=== PATIENT | female | born 1950 | race Caucasian/White ===

== ENCOUNTER 2017-03-23 10:06 | Observation (INO) | payer MEDICARE, OTHER ==
[2017-03-23 10:14] VITALS: RESP 18
[2017-03-23] MEDS ORDERED: ASPIRIN 81 MG PO STA (10:50)
[2017-03-23] MEDS ORDERED: NITROGLYCERIN OINT 1 INCH/GM PACKET TOPICAL STA (10:50)
--- NOTE | 2017-03-23 10:53 | ED ---
General Adult HPI - General Chief complaint: Chest Pain Stated complaint: Chest pain Time Seen by Provider: 03/23/17 10:46 Source: patient, RN notes reviewed Mode of arrival: wheelchair Limitations: no limitations - History of Present Illness Initial comments: Patient is a pleasant [age]-year-old female presenting to the emergency department chest discomfort. Onset of symptoms was around 8:15 when she woke this morning. Discomfort has been fairly steady. Discomfort does increase somewhat with movement. No dyspnea. No cough except for mild chronic cough. No nausea or diaphoresis. No history of similar symptoms previously. Patient does not regularly go to the doctor. Discomfort is currently rated 4/10. Discomfort does feel like pressure. - Related Data Home Medications Medication Instructions Recorded Confirmed Aspirin EC [Ecotrin Low Dose] 162 mg PO DAILY 03/23/17 03/23/17 Multivitamins, Thera [Multivitamin 1 tab PO DAILY 03/23/17 03/23/17 (formulary)] Allergies Allergy/AdvReac Type Severity Reaction Status Date / Time No Known Allergies Allergy Verified 03/23/17 10:33 Review of Systems ROS Statement: Those systems with pertinent positive or pertinent negative responses have been documented in the HPI. ROS Other: All systems not noted in ROS Statement are negative. Constitutional: Denies: fever Eyes: Denies: eye pain ENT: Denies: ear pain Respiratory: Denies: cough, dyspnea Cardiovascular: Reports: chest pain Endocrine: Denies: fatigue Gastrointestinal: Denies: abdominal pain Genitourinary: Denies: dysuria Musculoskeletal: Denies: back pain Skin: Denies: rash Neurological: Denies: weakness Past Medical History Past Medical History: No Reported History History of Any Multi-Drug Resistant Organisms: None Reported Past Surgical History: Hysterectomy Past Psychological History: No Psychological Hx Reported Smoking Status: Never smoker Past Alcohol Use History: Daily Past Drug Use History: Marijuana General Exam Limitations: no limitations General appearance: alert, in no apparent distress Head exam: Present: atraumatic Eye exam: Present: normal appearance, PERRL ENT exam: Present: normal oropharynx Neck exam: Present: normal inspection Respiratory exam: Present: normal lung sounds bilaterally. Absent: chest wall tenderness Cardiovascular Exam: Present: regular rate, normal rhythm Expanded Peripheral pulses: 2+: Radial (R), Radial (L), Dorsalis Pedis (R), Dorsalis Pedis (L) GI/Abdominal exam: Present: soft. Absent: tenderness Extremities exam: Present: normal inspection. Absent: pedal edema, calf tenderness Neurological exam: Present: alert Psychiatric exam: Present: normal affect, normal mood Skin exam: Present: normal color Course Vital Signs 03/23/17 03/23/17 10:10 10:57 Temperature 99.1 F Pulse Rate 116 H 91 Respiratory 18 18 Rate Blood Pressure 192/90 168/88 O2 Sat by Pulse 99 99 Oximetry EKG Findings - EKG Comments: EKG Findings:: Normal sinus rhythm 97. MO 164. QRS 76. QT 338. QTC 429. Normal axis. Normal QRS. Nonspecific ST-T. Medical Decision Making - Medical Decision Making Patient reevaluated without much change. Case was discussed in detail with Dr. Spivey, who will admit his patient. Patient updated. - Lab Data Result diagrams: 03/23/17 10:50 03/23/17 10:50 Lab Results 03/23/17 03/23/17 03/23/17 Range/Units 10:50 10:50 10:50 WBC 10.2 (3.8-10.6) k/uL RBC 4.89 (3.80-5.40) m/uL Hgb 14.3 (11.4-16.0) gm/dL Hct 45.3 (34.0-46.0) % MCV 92.5 (80.0-100.0) fL MCH 29.2 (25.0-35.0) pg MCHC 31.6 (31.0-37.0) g/dL RDW 13.3 (11.5-15.5) % Plt Count 363 (150-450) k/uL Neutrophils % 81 % Lymphocytes % 14 % Monocytes % 3 % Eosinophils % 1 % Basophils % 0 % Neutrophils # 8.3 H (1.3-7.7) k/uL Lymphocytes # 1.4 (1.0-4.8) k/uL Monocytes # 0.3 (0-1.0) k/uL Eosinophils # 0.1 (0-0.7) k/uL Basophils # 0.0 (0-0.2) k/uL PT (9.0-12.0) sec INR (<1.2) APTT (22.0-30.0) sec D-Dimer (<0.60) mg/L FEU Sodium 142 (137-145) mmol/L Potassium 4.1 (3.5-5.1) mmol/L Chloride 107 (98-107) mmol/L Carbon Dioxide 25 (22-30) mmol/L Anion Gap 10 mmol/L BUN 14 (7-17) mg/dL Creatinine 0.70 (0.52-1.04) mg/dL Est GFR (MDRD) Af Amer >60 (>60 ml/min/1.73 sqM) Est GFR (MDRD) Non-Af >60 (>60 ml/min/1.73 sqM) Glucose 125 H (74-99) mg/dL Calcium 10.6 H (8.4-10.2) mg/dL Magnesium 2.0 (1.6-2.3) mg/dL Total Bilirubin 0.4 (0.2-1.3) mg/dL AST 28 (14-36) U/L ALT 34 (9-52) U/L Alkaline Phosphatase 70 (38-126) U/L Total Creatine Kinase 61 (30-135) U/L CK-MB (CK-2) 1.6 (0.0-2.4) ng/mL CK-MB (CK-2) Rel Index 2.6 Troponin I <0.012 (0.000-0.034) ng/mL Total Protein 7.1 (6.3-8.2) g/dL Albumin 4.5 (3.5-5.0) g/dL 03/23/17 Range/Units 10:50 WBC (3.8-10.6) k/uL RBC (3.80-5.40) m/uL Hgb (11.4-16.0) gm/dL Hct (34.0-46.0) % MCV (80.0-100.0) fL MCH (25.0-35.0) pg MCHC (31.0-37.0) g/dL RDW (11.5-15.5) % Plt Count (150-450) k/uL Neutrophils % % Lymphocytes % % Monocytes % % Eosinophils % % Basophils % % Neutrophils # (1.3-7.7) k/uL Lymphocytes # (1.0-4.8) k/uL Monocytes # (0-1.0) k/uL Eosinophils # (0-0.7) k/uL Basophils # (0-0.2) k/uL PT 10.0 (9.0-12.0) sec INR 1.0 (<1.2) APTT 23.6 (22.0-30.0) sec D-Dimer 0.24 (<0.60) mg/L FEU Sodium (137-145) mmol/L Potassium (3.5-5.1) mmol/L Chloride (98-107) mmol/L Carbon Dioxide (22-30) mmol/L Anion Gap mmol/L BUN (7-17) mg/dL Creatinine (0.52-1.04) mg/dL Est GFR (MDRD) Af Amer (>60 ml/min/1.73 sqM) Est GFR (MDRD) Non-Af (>60 ml/min/1.73 sqM) Glucose (74-99) mg/dL Calcium (8.4-10.2) mg/dL Magnesium (1.6-2.3) mg/dL Total Bilirubin (0.2-1.3) mg/dL AST (14-36) U/L ALT (9-52) U/L Alkaline Phosphatase (38-126) U/L Total Creatine Kinase (30-135) U/L CK-MB (CK-2) (0.0-2.4) ng/mL CK-MB (CK-2) Rel Index Troponin I (0.000-0.034) ng/mL Total Protein (6.3-8.2) g/dL Albumin (3.5-5.0) g/dL - Radiology Data Radiology results: image reviewed (Chest x-ray shows no acute process) Disposition Clinical Impression: Chest pain Disposition: ADMITTED IP TO THIS [facility] Referrals: Hola Spivey MD [Primary Care Provider] - 1-2 days Decision Time: 12:16
[2017-03-23 11:00] LABS: Basophils % (A) 0 %; Eosinophils # (A) 0.1 k/uL (0-0.7); Eosinophils % (A) 1 %; HCT 45.3 % (34.0-46.0); HGB 14.3 gm/dL (11.4-16.0); Lymphocytes # (A) 1.4 k/uL (1.0-4.8); Lymphocytes % (A) 14 %; MCH 29.2 pg (25.0-35.0); MCHC 31.6 g/dL (31.0-37.0); MCV 92.5 fL (80.0-100.0); Monocytes # (A) 0.3 k/uL (0-1.0); Monocytes % (A) 3 %; Neutrophils # (A) 8.3 k/uL (1.3-7.7); Neutrophils % (A) 81 %; Platelet Count 363 k/uL (150-450); RBC 4.89 m/uL (3.80-5.40); RDW 13.3 % (11.5-15.5); WBC 10.2 k/uL (3.8-10.6)
[2017-03-23 11:10] LABS: ALT 34 U/L (9-52); AST 28 U/L (14-36); Albumin 4.5 g/dL (3.5-5.0); Alkaline Phosphatase 70 U/L (38-126); Anion Gap 10 mmol/L; Blood Urea Nitrogen 14 mg/dL (7-17); Calcium 10.6 mg/dL (8.4-10.2); Carbon Dioxide 25 mmol/L (22-30); Chloride 107 mmol/L (98-107); Glucose 125 mg/dL (74-99); Potassium 4.1 mmol/L (3.5-5.1); Sodium 142 mmol/L (137-145); Total Bilirubin 0.4 mg/dL (0.2-1.3); Total Protein 7.1 g/dL (6.3-8.2)
[2017-03-23 11:12] LABS: D-Dimer 0.24 mg/L FEU (<0.60)
--- NOTE | 2017-03-23 11:15 | XR ---
EXAMINATION TYPE: XR chest 2V DATE OF EXAM: 03/23/2017 COMPARISON: None HISTORY: 66-year-old female with upper left chest pain this morning TECHNIQUE: PA and lateral views FINDINGS: The cardiomediastinal silhouette, aorta, and pulmonary vasculature are within normal limits. Strandy atelectasis in the lower lungs. Otherwise, lungs and pleural spaces are clear. IMPRESSION: No acute cardiopulmonary process.
[2017-03-23 11:16] LABS: Partial Thromboplastin Time 23.6 sec (22.0-30.0)
[2017-03-23 11:25] LABS: Creatine Kinase 61 U/L (30-135)
[2017-03-23 11:38] LABS: Creatine Kinase MB 1.6 ng/mL (0.0-2.4); Troponin I <0.012 ng/mL (0.000-0.034)
[2017-03-23] MEDS ORDERED: NITROGLYCERIN SL TABS 0.4 MG TAB SUBLINGUAL PRN (12:16)
[2017-03-23] MEDS ORDERED: INFLUENZA VACCINE (6 MOS+) 60 MCG/0.5 ML SYRINGE IM ONE (13:35)
[2017-03-23] MEDS ORDERED: PNEUMOCOCCAL VACC-PNEUMOVAX 23 25 MCG/0.5 ML VIAL IM ONE (13:40)
[2017-03-23 17:29] LABS: Creatine Kinase 38 U/L (30-135)
[2017-03-23 17:41] LABS: Troponin I <0.012 ng/mL (0.000-0.034)
[2017-03-23] MEDS: NITROGLYCERIN OINT 1 INCH/GM PACKET TOPICAL SCH (21:59)
[2017-03-23 23:07] LABS: Creatine Kinase 34 U/L (30-135)
[2017-03-23 23:16] LABS: Creatine Kinase MB 0.7 ng/mL (0.0-2.4); Troponin I <0.012 ng/mL (0.000-0.034)
[2017-03-24] MEDS: NITROGLYCERIN OINT 1 INCH/GM PACKET TOPICAL SCH ×2 (02:22→07:06)
[2017-03-24 05:27] LABS: Cholesterol 239 mg/dL (<200); HDL Cholesterol 86 mg/dL (40-60); LDL Cholesterol,Calculated 138 mg/dL (0-99); Triglycerides 77 mg/dL (<150)
--- NOTE | 2017-03-24 08:32 | P.HPIM ---
History of Present Illness H&P Date: 03/24/17 Chief Complaint: Chest pain radiating to the left neck. This is a history of physical 66-year-old white female essentially admitted for chest pain which started yesterday morning after waking up from evening sleep. The patient had never had chest pain like this in the past it was described as an ache but it did radiate to the upper left clavicular neck area. The pain did not resolve and because of this was essentially admitted. She never had pain like this in the past. Activity is not necessary provocative. There were no relieving factors otherwise stated. Review of Systems Constitutional: Denies chills, Denies fever Eyes: denies blurred vision, denies pain Ears, nose, mouth and throat: Denies headache, Denies sore throat Cardiovascular: Reports as per HPI, Reports chest pain, Denies shortness of breath Respiratory: Denies cough Genitourinary: Denies dysuria, Denies hematuria Musculoskeletal: Denies myalgias Past Medical History Past Medical History: Osteoarthritis (OA) Additional Past Medical History / Comment(s): Arthritis bilateral feet History of Any Multi-Drug Resistant Organisms: None Reported Past Surgical History: Appendectomy, Hysterectomy Additional Past Surgical History / Comment(s): Bilateral lasik eye surgery Past Anesthesia/Blood Transfusion Reactions: No Reported Reaction Smoking Status: Never smoker - Past Family History Father Family Medical History: No Reported History Additional Family Medical History / Comment(s): Father was healthy and lived to be 85 yrs old. Mother Family Medical History: Seizure Disorder Additional Family Medical History / Comment(s): Mother had a closed head injury and developed epilepsy after that. She at the age of 81yrs. Medications and Allergies Home Medications Medication Instructions Recorded Confirmed Type Aspirin EC [Ecotrin Low Dose] 162 mg PO DAILY 03/23/17 03/23/17 History Multivitamins, Thera [Multivitamin 1 tab PO DAILY 03/23/17 03/23/17 History (formulary)] Allergies Allergy/AdvReac Type Severity Reaction Status Date / Time No Known Allergies Allergy Verified 03/23/17 10:33 Physical Exam Vitals: Vital Signs Temp Pulse Pulse Resp BP BP Pulse Ox 03/24/17 08:00 98.0 F 71 18 161/74 97 03/24/17 04:00 98 F 97 18 146/80 96 03/24/17 00:00 98.1 F 97 18 147/88 96 03/23/17 20:00 18 03/23/17 19:43 98.6 F 69 18 119/63 100 03/23/17 15:30 98.6 F 86 18 141/71 97 03/23/17 14:59 97.8 F 82 18 125/67 99 03/23/17 14:22 85 18 129/64 99 03/23/17 12:42 84 18 138/74 99 03/23/17 10:57 91 18 168/88 99 03/23/17 10:10 99.1 F 116 H 18 192/90 99 Intake and Output 03/23/17 03/24/17 03/24/17 22:59 06:59 14:59 Intake Total 240 Balance 240 Intake: Oral 240 Other: Voiding Method Toilet Toilet # Voids 1 Weight 58.967 kg 58.967 kg Results CBC & Chem 7: 03/23/17 10:50 03/23/17 10:50 Labs: Abnormal Lab Results - Last 24 Hours (Table) 03/23/17 03/23/17 03/23/17 Range/Units 10:50 10:50 10:50 Neutrophils # 8.3 H (1.3-7.7) k/uL Glucose 125 H (74-99) mg/dL Calcium 10.6 H (8.4-10.2) mg/dL Cholesterol 239 H (<200) mg/dL LDL Cholesterol, Calc 138 H (0-99) mg/dL HDL Cholesterol 86 H (40-60) mg/dL Thrombosis Risk Factor Assmnt - Choose All That Apply Any of the Below Risk Factors Present?: Yes Each Factor Represents 1 point: Obesity (BMI >25) Other Risk Factors: Yes Each Risk Factor Represents 2 Points: Age 61-74 years Other congenital or acquired thrombophilia - If yes, enter type in comment: No Thrombosis Risk Factor Assessment Total Risk Factor Score: 3 Thrombosis Risk Factor Assessment Level: Moderate Risk Assessment and Plan (1) Chest pain Current Visit: Yes Status: Acute Code(s): R07.9 - CHEST PAIN, UNSPECIFIED SNOMED Code(s): 83662376 Plan: Rule out myocardial infarction. Intermediate Project Manager consult. No significant enzymatic elevation is noted on admission. The patient is now stabilizing. Probable stress testing to be done given her clinical scenario and advancing age. We will continue to follow. Anticipate discharge later today if cleared by cardiology. The patient is a full code otherwise Time with Patient: Greater than 30
[2017-03-24] MEDS ORDERED: ASPIRIN 325 MG TAB PO SCH (09:00)
[2017-03-24] MEDS ORDERED: ATORVASTATIN 40 MG TAB PO SCH (11:30)
[2017-03-24] MEDS ORDERED: LISINOPRIL 10 MG TAB PO SCH (11:30)
--- NOTE | 2017-03-24 11:32 | NM ---
EXAMINATION TYPE: NM stress cardiolite complete DATE OF EXAM: 03/24/2017 COMPARISON: NONE HISTORY: Chest pain and facial numbness TECHNIQUE: After the intravenous administration of 11.7 mCi Tc 99m Sestamibi - Rest images obtained 40 minutes post injection. The patient exercised using a ZACHARY protocol and 1 minute prior to peak exercise was injected with 29.6 mCi Tc 99m Sestamibi - Stress images obtained 5 minutes post injectio n. FINDINGS: Targeted heart rate was achieved during performance of the study. Review of stress and rest SPECT isabela ges demonstrates no distinct perfusion abnormality. Gated analysis shows normal wall motion with an estimated left ventricular ejection fraction of 64 %. TID is calculated within normal limits at 0.88. IMPRESSION: 1. No scintigraphic evidence for reversible ischemia. 2. Estimated left ventricular ejection fraction of 64%.
[2017-03-24 11:50] VITALS: BP 139/85; PULSE 89; TEMP 98.5
--- NOTE | 2017-03-24 12:01 | ECHOF ---
Referral Reason:chest pain MEASUREMENTS -------- HEIGHT: 147.3 cm WEIGHT: 59.0 kg BP: 161/74 IVSd: 1.0 cm (0.6 - 1.1) LVIDd: 4.6 cm (3.9 - 5.3) LVPWd: 1.2 cm (0.6 - 1.1) IVSs: 1.5 cm LVIDs: 2.5 cm LVPWs: 2.4 cm Ao Diam: 3.1 cm (2.0 - 3.7) AV Cusp: 1.9 cm (1.5 - 2.6) LA Diam: 3.3 cm (2.7 - 3.8) MV EXCURSION: 7.809 mm (> 18.000) MV EF SLOPE: 34 mm/s (70 - 150) EPSS: 0.9 cm MV E Andrey: 0.53 m/s MV DecT: 215 ms MV A Andrey: 0.70 m/s MV E/A Ratio: 0.77 RAP: 5.00 mmHg RVSP: 9.49 mmHg FINDINGS -------- Sinus rhythm with extra systolic beats. This was a technically good study. The left ventricular size is normal. Left ventricular wall thickness is normal. Overall left vent ricular systolic function is normal with, an EF between 55 - 60 %. The right ventricle is normal in size and function. The left atrium is normal in size. The right atrium is normal in size. The aortic valve is trileaflet, and appears structurally normal. No aortic stenosis or regurgitation. Mild mitral annular calcification present. There is trace mitral regurgitation. Trace tricuspid regurgitation present. The right ventricular systolic pressure, as measured by Dopp ler, is 9.49mmHg. Trace/mild (physiologic) pulmonic regurgitation. The aortic root size is normal. The pericardium is normal. CONCLUSIONS -------- 1. Sinus rhythm with extra systolic beats. 2. This was a technically good study. 3. The left ventricular size is normal. 4. Left ventricular wall thickness is normal. 5. Overall left ventricular systolic function is normal with, an EF between 55 - 60 %. 6. The right ventricle is normal in size and function. 7. The left atrium is normal in size. 8. The right atrium is normal in size. 9. The aortic valve is trileaflet, and appears structurally normal. No aortic stenosis or regurgitati on. 10. Mild mitral annular calcification present. 11. There is trace mitral regurgitation. 12. Trace tricuspid regurgitation present. 13. The right ventricular systolic pressure, as measured by Doppler, is 9.49mmHg. 14. Trace/mild (physiologic) pulmonic regurgitation. 15. The aortic root size is normal. 16. The pericardium is normal. DOCTOR OF NAPRAPATHY: Ann Marie Barajas RDCS
--- NOTE | 2017-03-24 12:19 | P.CRDCN ---
History of Present Illness Consult date: 03/24/17 Consult reason: chest pain History of present illness: Mrs. Cerrato is a pleasant 66-year-old female with no past medical history. Although she states she hasn't seen a doctor in many years. She denies tobacco use but drinks a beer per night as well as smokes marijuana daily. She denies history of coronary artery disease and has never seen a customer assistance representative for any reason. We have been asked to see her in consultation for complaints of chest pain. She states she woke up yesterday with a tight, squeezing sensation in the anterior left chest wall that radiates around to the back. She denies radiation of pain to her arm, neck, jaw or shoulder. She had no associated symptoms suggestive of angina such as shortness of breath, dizziness, palpitations, diaphoresis, nausea or vomiting. The pain persisted for an hour or so and that is why she decided to come to the hospital. Blood pressure on arrival 192/90 with heart rate 116. Repeat this morning 161/74 with heart rate 71. No medications given in ED. EKG on arrival sinus mechanism with non-specific ST abnormalities in anterolateral leads. Repeat this morning shows sinus mechanism with no ST abnormalities. Chest xray is negative for an acute cardiopulmonary process. Laboratory data reviewed, hemoglobin 14.3, platelets 363, d-dimer negative, potassium 4.1, magnesium 2.0, creatinine 0.7, and cardiac enzymes negative 3, LDL 138, HDL 86, total cholesterol 238. She takes aspirin 162 mg daily. There is no old echo, catheterization or stress test for review. Review of Systems At the time of my exam: CONSTITUTIONAL: Denies fever. Denies chills. EYES: Denies blurred vision. Denies vision changes. Denies eye pain. EARS, NOSE, MOUTH & THROAT: Denies headache. Denies sore throat. Denies ear pain. CARDIOVASCULAR: Denies chest pain. Denies shortness of breath. Denies orthopnea. Denies PND. Denies palpitations. RESPIRATORY: Denies cough. GASTROINTESTINAL: Denies abdominal pain. Denies diarrhea. Denies constipation. Denies nausea. Denies vomiting. MUSCULOSKELETAL: Denies myalgias. INTEGUMENTARY: Denies pruitis. Denies rash. NEUROLOGIC: Denies numbness. Denies tingling. Denies weakness. PSYCHIATRIC: Denies anxiety. Denies depression. ENDOCRINE: Denies fatigue. Denies weight change. Denies polydipsia. Denies polyurina. GENITOURINARY: Denies burning, hematuria or urgency with micturation. HEMATOLOGIC: Denies history of anemia. Denies bleeding. Past Medical History Past Medical History: Osteoarthritis (OA) Additional Past Medical History / Comment(s): Arthritis bilateral feet History of Any Multi-Drug Resistant Organisms: None Reported Past Surgical History: Appendectomy, Hysterectomy Additional Past Surgical History / Comment(s): Bilateral lasik eye surgery Past Anesthesia/Blood Transfusion Reactions: No Reported Reaction Smoking Status: Never smoker - Past Family History Father Family Medical History: No Reported History Additional Family Medical History / Comment(s): Father was healthy and lived to be 85 yrs old. Mother Family Medical History: Seizure Disorder Additional Family Medical History / Comment(s): Mother had a closed head injury and developed epilepsy after that. She at the age of 81yrs. Medications and Allergies Home Medications Medication Instructions Recorded Confirmed Type Aspirin EC [Ecotrin Low Dose] 162 mg PO DAILY 03/23/17 03/23/17 History Multivitamins, Thera [Multivitamin 1 tab PO DAILY 03/23/17 03/23/17 History (formulary)] Aspirin 81 mg PO DAILY chew 03/24/17 Rx Atorvastatin [Lipitor] 40 mg PO DAILY #30 tab 03/24/17 Rx Lisinopril [Zestril] 10 mg PO DAILY #30 tab 03/24/17 Rx Allergies Allergy/AdvReac Type Severity Reaction Status Date / Time No Known Allergies Allergy Verified 03/23/17 10:33 Physical Exam Vitals: Vital Signs Temp Pulse Pulse Resp BP BP Pulse Ox 03/24/17 08:00 98.0 F 71 18 161/74 97 03/24/17 04:00 98 F 97 18 146/80 96 03/24/17 00:00 98.1 F 97 18 147/88 96 03/23/17 20:00 18 03/23/17 19:43 98.6 F 69 18 119/63 100 03/23/17 15:30 98.6 F 86 18 141/71 97 03/23/17 14:59 97.8 F 82 18 125/67 99 03/23/17 14:22 85 18 129/64 99 03/23/17 12:42 84 18 138/74 99 Intake and Output 03/23/17 03/24/17 03/24/17 22:59 06:59 14:59 Intake Total 240 Balance 240 Intake: Oral 240 Other: Voiding Method Toilet Toilet Toilet # Voids 1 Weight 58.967 kg 58.967 kg blood pressure 161/70 471 afebrile GENERAL: This is a 66-year-old female in no apparent distress at the time of my examination. HEENT: Head is atraumatic, normocephalic. Pupils are equal, round. Sclerae anicteric. Conjunctivae are clear. Mucous membranes of the mouth are moist. Neck is supple. There is no jugular venous distention. No carotid bruit is heard. LUNGS: Clear to auscultation no wheezes, rales or rhonchi. No chest wall tenderness is noted on palpation or with deep breathing. HEART: Regular rate and rhythm without murmurs, rubs or gallops. S1 and S2 heard. ABDOMEN: Soft, nontender. Bowel sounds are heard. No organomegaly noted. EXTREMITIES: No evidence of peripheral edema and no calf tenderness noted. VASCULAR: Radial and dorsalis pedis pulses palpated, no evidence of clubbing. NEUROLOGIC: Patient is awake, alert and oriented x3. Results 03/23/17 10:50 03/23/17 10:50 Cardiac Enzymes 03/23/17 03/23/17 03/23/17 Range/Units 10:50 10:50 16:42 AST 28 (14-36) U/L CK-MB (CK-2) 1.6 1.0 (0.0-2.4) ng/mL Troponin I <0.012 <0.012 (0.000-0.034) ng/mL 03/23/17 Range/Units 22:17 AST (14-36) U/L CK-MB (CK-2) 0.7 (0.0-2.4) ng/mL Troponin I <0.012 (0.000-0.034) ng/mL Coagulation 03/23/17 Range/Units 10:50 PT 10.0 (9.0-12.0) sec APTT 23.6 (22.0-30.0) sec Lipids 03/23/17 Range/Units 10:50 Triglycerides 77 (<150) mg/dL Cholesterol 239 H (<200) mg/dL HDL Cholesterol 86 H (40-60) mg/dL Comprehensive Metabolic Panel 03/23/17 Range/Units 10:50 Sodium 142 (137-145) mmol/L Potassium 4.1 (3.5-5.1) mmol/L Chloride 107 (98-107) mmol/L Carbon Dioxide 25 (22-30) mmol/L BUN 14 (7-17) mg/dL Creatinine 0.70 (0.52-1.04) mg/dL Glucose 125 H (74-99) mg/dL Calcium 10.6 H (8.4-10.2) mg/dL AST 28 (14-36) U/L ALT 34 (9-52) U/L Alkaline Phosphatase 70 (38-126) U/L Total Protein 7.1 (6.3-8.2) g/dL Albumin 4.5 (3.5-5.0) g/dL Current Medications Generic Name Dose Route Start Last Admin Trade Name Freq PRN Reason Stop Dose Admin Nitroglycerin 0.4 mg 03/23/17 12:16 Nitrostat SUBLINGUAL Q5M PRN Chest Pain Sodium Chloride 10 ml 03/23/17 21:00 03/23/17 22:01 Saline Flush IV 10 ml BID GREG Administration Intake and Output 03/23/17 03/24/17 03/24/17 22:59 06:59 14:59 Intake Total 240 Balance 240 Intake: Oral 240 Other: Voiding Method Toilet Toilet Toilet # Voids 1 Weight 58.967 kg 58.967 kg 03/23/17 10:50 03/23/17 10:50 Assessment and Plan Assessment: ASSESSMENT 1. Chest pain, atypical with EKG changes and negative cardiac enzymes. EKG changes resolved this morning. 2. Hypertension 3. Dyslipidemia 4. Daily marijuana use. PLAN Obtain 2D echocardiogram and doppler study to assess cardiac structure and function. Perform Cardiolyte stress test to assess for reversible cardiac ischemia. Start the patient on lisinopril 10 mg daily, atorvastatin 40 mg daily and recommend she continues with daily aspirin at 81 mg. Lifestyle modifications discussed as well to lower LDL and cessation of marijuana use. If above diagnostic testing is normal she is stable for discharge home. Follow-up with Dr. Dumas in 2-3 weeks. Thank you kindly for this consultation. Nurse Practitioner note has been reviewed, I agree with a documented findings and plan of care. Patient was seen and examined.
--- NOTE | 2017-03-24 13:07 | EST ---
EXERCISE STRESS DATE OF SERVICE: 03/24/2017 AGE: 66 SEX: Female HT: 56" WT: 130 pounds PROTOCOL: CARDIOLITE ZACHARY STAGE: II DURATION OF EXERCISE: 7:30 HEART RATE REST: 78 BLOOD PRESSURE REST: 141/84 MAXIMUM HEART RATE ACHIEVED: 140 MAXIMUM BLOOD PRESSURE: 198/70 85% MPHR: 132 100% MPHR: 155 METS: 9.1 INDICATION OF THE STUDY: Chest pain. CLINICAL INFORMATION: STRESS DATA: Pretesting physical examination showed a heart rate of 78, pressure is 141/84 mmHg. Baseline EKG showed sinus mechanism with nonspecific changes anteriorly. The patient exercised on the treadmill according to Zachary protocol for a total of 7 minutes and 30 seconds and achieved 9.1 METs. Max heart rate was 140, which is about 90% of maximum predicted heart rate. Maximum blood pressure was 198/70 mmHg. Clinically the patient did not have any symptoms of chest pain or chest discomfort. The EKG did not show any significant ST or T-wave abnormalities consistent with ischemia. CONCLUSION: 1. Good exercise capacity. 2. Normal EKG in response to exercise. 3. Please follow up on the Cardiolite portion on a separate report from radiology department. MMODL / IJN: [id number] /
[2017-03-25] MEDS ORDERED: ASPIRIN 81 MG PO SCH (09:00)
== END 2017-03-24 13:46 | disposition home or self-care (01) ==
LOC: EC 10:06 → 3OBS 12:17
PROVIDERS: ADMIT Family Medicine; ATTEND Family Medicine
DX: R07.89 Other chest pain (principal); I10 Essential (primary) hypertension; E78.5 Hyperlipidemia, unspecified; M19.072 Primary osteoarthritis, left ankle and foot; M19.071 Primary osteoarthritis, right ankle and foot; E66.9 Obesity, unspecified; Z68.25 Body mass index [BMI] 25.0-25.9, adult; F12.90 Cannabis use, unspecified, uncomplicated; Z79.82 Long term (current) use of aspirin; Z82.0 Family history of epilepsy and other diseases of the nervous system
CPT/HCPCS: 99285 ×2; 36415; 93005; 93017; 93306; 85379; 80061; 80053; 82550; 82553; 83735; 84484; 85025; 85610; 85730; 71046; 78452; G0378 ×2; A9500

== ENCOUNTER → 2020-07-09 | Outpatient (CLI) | payer MEDICARE, OTHER ==
--- NOTE | 2020-07-09 13:59 | BD ---
EXAMINATION TYPE: Axial Bone Density DATE OF EXAM: 07/09/2020 COMPARISON: NONE CLINICAL HISTORY: Height: 57.5 IN Weight: 121 LBS FRAX RISK QUESTIONS: Family History (Parent hip fracture): YES MOTHER RISK FACTORS HISTORY OF: Active: YES Diet low in dairy products/other sources of calcium: YES Postmenopausal woman: TOTAL HYST AGE 46 MEDICATIONS: Additional Medications: MULTI VIT, EXAM MEASUREMENTS: Bone mineral densitometry was performed using the [employer]. Bone mineral density as measured about the Lumbar spine is: ----- L1-L4(G/cm2): 1.364 T Score Values are as follows: ----- L2: 1.1 ----- L3: 2.0 ----- L4: 1.8 ----- L1-L4: 1.5 Bone mineral density BASELINE Bone mineral density about the R hip (g/cm2): 0.702 Bone mineral density about the L hip (g/cm2): 0.709 T Score values are as follows: -----R Neck: -2.4 -----L Neck: -2.4 -----R Total: -0.6 -----L Total: -0.3 Bone mineral density BASELINE IMPRESSION: Osteopenia (T Score between -2.5 and -1). There is slightly increased risk of fracture and the patient may be considered for treatment. Re-Screen 2-5 years. NOTE: T-SCORE=SD OF THE YOUNG ADULT MEAN.
--- NOTE | 2020-07-11 12:30 | MM ---
Reason for exam: screening (asymptomatic). Last mammogram was performed 20 years ago. History: Patient is postmenopausal and is nulliparous. Took estrogen for 4 years. Physical Findings: A clinical breast exam by your physician is recommended on an annual basis and results should be correlated with mammographic findings. MG 3D Screening Mammo W/Cad Bilateral CC and MLO view(s) were taken. No prior studies available for comparison. The breast tissue is heterogeneously dense. This may lower the sensitivity of mammography. ASSESSMENT: Benign, BI-RAD 2 RECOMMENDATION: Routine screening mammogram of both breasts in 1 year.
== END | disposition home or self-care (01) ==
LOC: RADMAMWWP 12:45
PROVIDERS: ATTEND Family Medicine
DX: Z12.31 Encounter for screening mammogram for malignant neoplasm of breast (principal); M85.89 Other specified disorders of bone density and structure, multiple sites; Z78.0 Asymptomatic menopausal state
CPT/HCPCS: 77063; 77067; 77080